=== PATIENT | female | born 1945 | race Two or more races ===

== ENCOUNTER 2018-06-28 21:03 | Emergency (ER) | payer OTHER, MEDICAID ==
[~2018-06-28] VITALS: Ht 165.1 cm; Wt 65.8 kg
[2018-06-28 22:05] LABS: Basophils # (auto) 0.1 uL; Eosinophils # (auto) 0.1 uL; Hemoglobin 12.8 g/dL (12.2-16.2); Mean Corpuscular Hemoglobin 25.8 pg (28.0-32.0); White Blood Cell 16.5 10^3/uL (4.4-10.8)
[2018-06-28 22:07] LABS: Basophils % (auto) 0.3 % (0.0-2.0); Eosinophils % (auto) 0.6 % (0.0-7.0); Lymphocytes # (auto) 2.4 uL; Lymphocytes % (auto) 14.6 % (10.0-50.0); Mean Corpuscular Hgb Conc. 31.9 g/dL (32.0-36.0); Mean Corpuscular Volume 80.7 fL (80.0-100.0); Monocytes # (auto) 0.9 uL; Monocytes % (auto) 5.6 % (0.0-12.0); Neutrophils % (auto) 78.9 % (37.0-80.0); Platelet Count (auto) 320 10^3/uL (140-450); Red Blood Cells 4.95 10^6/uL (4.0-5.20); Red Cell Distribution Width 15.8 % (11.8-14.3)
[2018-06-28 22:21] LABS: Albumin 3.2 g/dL (3.4-5.0); BUN/Creatinine Ratio 26.4; Calcium 8.1 mg/dL (8.5-10.1); Potassium 3.9 mmol/L (3.5-5.1)
[2018-06-28 22:24] LABS: Bilirubin, Total 0.2 mg/dL (0.2-1.0); Total Protein 7.1 g/dL (6.4-8.2)
[2018-06-28] MEDS ORDERED: KETOROLAC TROMETH 30 MG/ML 1ML VIAL IV ONE (23:30)
[2018-06-28] MEDS ORDERED: ONDANSETRON HCL 4 MG/2 ML VIAL IV ONE (23:30)
[2018-06-28] MEDS ORDERED: SODIUM CHLORIDE 0.9% 1,000 ML IV ONE (23:30)
[2018-06-29 01:41] VITALS: BP 201/84
[2018-06-29 01:48] LABS: Urine Amorphous Crystal FEW /hpf (None Seen); Urine Bacteria FEW /hpf (None Seen); Urine Blood TRACE /uL (Negative); Urine Specific Gravity 1.013 (1.001-1.035); Urine WBC 3 /hpf (0 - 5)
== END 2018-06-29 02:07 | disposition home or self-care (01) ==
LOC: EDBD 21:03 → ER 21:11
DX: N20.0 Calculus of kidney (principal); Z86.73 Personal history of transient ischemic attack (TIA), and cerebral infarction without residual deficits; Z90.710 Acquired absence of both cervix and uterus
CPT/HCPCS: 36415; 74176; 80053; 81001; 82150; 83690; 85025; 96374; 96375; 99284; J1885; J2405; J7030

== ENCOUNTER 2018-11-11 13:37 | Emergency (ER) | payer OTHER, MEDICAID ==
[~2018-11-11] VITALS: Ht 154.9 cm; Wt 81.6 kg
[2018-11-11 17:35] VITALS: BP 185/93
== END 2018-11-11 17:34 | disposition home or self-care (01) ==
LOC: EDUNIT# 13:37 → EDBD 13:37 → ER 13:43
DX: S80.02XA Contusion of left knee, initial encounter (principal); S70.01XA Contusion of right hip, initial encounter; Z86.73 Personal history of transient ischemic attack (TIA), and cerebral infarction without residual deficits; Z90.710 Acquired absence of both cervix and uterus; Z96.652 Presence of left artificial knee joint; Y93.89 Activity, other specified; W18.39XA Other fall on same level, initial encounter; Y99.8 Other external cause status; Y92.89 Other specified places as the place of occurrence of the external cause
CPT/HCPCS: 29505; 73502; 73560

== ENCOUNTER 2020-06-15 23:59 | Inpatient (IN) | payer OTHER, MEDICAID ==
[~2020-06-15] VITALS: Ht 152.4 cm; Wt 85.2 kg
[2020-06-16] MEDS ORDERED: SODIUM CHLORIDE 0.9% 500 ML IV ONE (01:00)
[2020-06-16] MEDS ORDERED: ONDANSETRON HCL 4 MG/2 ML VIAL IV ONE (01:00)
[2020-06-16] MEDS ORDERED: MORPHINE SULFATE 4 MG/ML SYR/VIAL IV ONE ×2 (01:00→05:30)
[2020-06-16 01:31] LABS: Basophils # (auto) 0.1 10 ^3/uL (0-0.2); Hemoglobin 13.3 g/dL (12.2-16.2); Monocytes # (auto) 0.7 10 ^3/uL (0-1.3)
[2020-06-16 01:32] LABS: Basophils % (auto) 0.2 % (0.0-2.0); Eosinophils # (auto) 0.1 10 ^3/uL (0-0.8); Eosinophils % (auto) 0.2 % (0.0-7.0); Hematocrit 41.6 % (36.0-46.0); Lymphocytes # (auto) 1.4 10 ^3/uL (0.4-5.4); Mean Corpuscular Hemoglobin 25.1 pg (28.0-32.0); Mean Corpuscular Volume 78.4 fL (80.0-100.0); Monocytes % (auto) 3.1 % (0.0-12.0); Neutrophils # (auto) 21.9 10 ^3/uL (1.6-8.6); Neutrophils % (auto) 90.5 % (37.0-80.0); Platelet Count (auto) 371 10^3/uL (140-450); Red Blood Cells 5.31 10^6/uL (4.0-5.20); Red Cell Distribution Width 16.6 % (11.8-14.3); White Blood Cell 24.2 10^3/uL (4.4-10.8)
[2020-06-16 01:47] LABS: Alanine Aminotransferase 25 U/L (13-56); Albumin 3.2 g/dL (3.4-5.0); Amylase 49 U/L (25-115); Anion Gap 7 (5-15); Aspartate Aminotransferase 19 U/L (15-37); Blood Urea Nitrogen 15 mg/dL (7-18); Calcium 8.4 mg/dL (8.5-10.1); Carbon Dioxide 30 mmol/L (21-32); Chloride 100 mmol/L (98-107); GFR African American 92 mL/min; GFR Non-African American 76 mL/min; Glucose 125 mg/dL (74-106); Lipase 114 U/L (73-393); Potassium 3.3 mmol/L (3.5-5.1); Sodium 137 mmol/L (136-145)
[2020-06-16 01:52] LABS: Alkaline Phosphatase 184 U/L (45-117); Bilirubin, Total 0.3 mg/dL (0.2-1.0); Total Protein 7.8 g/dL (6.4-8.2)
[2020-06-16 04:03] LABS: Urine Bacteria NONE SEEN /hpf (None Seen); Urine Blood Negative /uL (Negative); Urine Specific Gravity 1.015 (1.001-1.035); Urine WBC 3 /hpf (0 - 5)
[2020-06-16] MEDS ORDERED: SODIUM CHLORIDE 0.9% 1,000 ML IV ONE (05:30)
[2020-06-16] MEDS ORDERED: PIPERACILLIN-TAZOB 3.375GM 100 ML IV ONE (05:30)
[2020-06-16] MEDS ORDERED: VANCOMYCIN 1GM/250ML 250 ML IV ONE (05:30)
[2020-06-16] MEDS ORDERED: DOCUSATE SOD 100 MG CAP PO PRN (06:45)
[2020-06-16] MEDS ORDERED: MORPHINE SULFATE 4 MG/ML SYR/VIAL IV PRN (06:45)
[2020-06-16] MEDS ORDERED: POTASSIUM CHL 20MEQ/100ML 100 ML IV ONE (06:45)
[2020-06-16] MEDS ORDERED: NITROGLYCERIN 0.4 MG SL TAB SL PRN (06:45)
[2020-06-16] MEDS ORDERED: VANCOMYCIN PER PHARMACY 0 MG IV SCH (06:45)
[2020-06-16] MEDS ORDERED: MORPHINE SULF INJ 2 MG/ML SYRINGE 1ML IV PRN (06:45)
[2020-06-16 06:49] LABS: Lactic Acid w/Reflex 2.5 mmol/L (0.4-2.0)
[2020-06-16 08:16] LABS: Basophils # (auto) 0 10 ^3/uL (0-0.2); Eosinophils # (auto) 0 10 ^3/uL (0-0.8); Eosinophils % (auto) 0.2 % (0.0-7.0); Lymphocytes # (auto) 1.5 10 ^3/uL (0.4-5.4); Monocytes # (auto) 0.8 10 ^3/uL (0-1.3)
[2020-06-16 08:18] LABS: Basophils % (auto) 0.1 % (0.0-2.0); Hematocrit 35.6 % (36.0-46.0); Hemoglobin 11.2 g/dL (12.2-16.2); Lymphocytes % (auto) 6.5 % (10.0-50.0); Mean Corpuscular Hemoglobin 24.9 pg (28.0-32.0); Mean Corpuscular Hgb Conc. 31.4 g/dL (32.0-36.0); Mean Corpuscular Volume 79.2 fL (80.0-100.0); Monocytes % (auto) 3.4 % (0.0-12.0); Neutrophils # (auto) 20.7 10 ^3/uL (1.6-8.6); Neutrophils % (auto) 89.8 % (37.0-80.0); Platelet Count (auto) 287 10^3/uL (140-450); Red Cell Distribution Width 16.8 % (11.8-14.3); White Blood Cell 23.1 10^3/uL (4.4-10.8)
[2020-06-16 08:23] LABS: Albumin 2.5 g/dL (3.4-5.0); Calcium 7.5 mg/dL (8.5-10.1); Potassium 3.2 mmol/L (3.5-5.1)
[2020-06-16] MEDS: SODIUM CHLORIDE 0.9% 1,000 ML IV SCH (08:25)
[2020-06-16 08:26] LABS: BUN/Creatinine Ratio 22.6; Bilirubin, Total 0.4 mg/dL (0.2-1.0)
[2020-06-16] MEDS: ENOXAPARIN SOD 40 MG/0.4 ML SYRINGE SC SCH (09:19)
[2020-06-16] MEDS: ONDANSETRON HCL 4 MG/2 ML VIAL IV PRN (09:19)
--- NOTE | 2020-06-16 14:45 | NUR ---
Telemetry admit from ER RUBIO,CHRISTOPHE admitted to Telemetry unit after SBAR received. Patient oriented to ZAKIA PAVON RN primary RN, TELE unit, room 289, bed B, and unit policies regarding patient care and visiting hours. Patient now on continuous telemetry monitoring, tele box #71 HR 90 and telemetry reading on arrival to unit is NSR . Patient placed on bedside oxygen, weighed by bedscale and encouraged to call if they need something. All questions and concerns addressed, patient verbalized understanding.
[2020-06-16 14:54] VITALS: BP 130/71
[2020-06-16] MEDS ORDERED: CYAN100L PO (14:54)
[2020-06-16] MEDS: PIPERACILLIN-TAZOB 3.375GM 100 ML IV SCH ×2 (15:04→21:40)
[2020-06-16] MEDS: MORPHINE SULF INJ 2 MG/ML SYRINGE 1ML IV PRN ×2 (15:24→21:40)
[2020-06-16 16:32] VITALS: BP 130/71
[2020-06-16] MEDS ORDERED: VANCOMYCIN 750mg/250ml 250 ML IV SCH (17:00)
--- NOTE | 2020-06-16 18:54 | NUR ---
CARE ENDORSED TO NOC MICHEL MCWILLIAMS.
--- NOTE | 2020-06-16 19:34 | NUR ---
Opening Shift Note Received report and assumed care of patient. Patient is awake and alert. No signs or symptoms of distress noted. Instructed patient on plan of care and to call for assistance as needed. Will continue to monitor.
--- NOTE | 2020-06-16 20:00 | NUR ---
IV removal/insertion 20g IV to the Left hand infiltrated. Discontinued IV with clean technique, catheter tip fully intact. Pressure dressing applied to site. NOTE: Inserted 20g IV to the Right forearm.
[2020-06-16] MEDS ORDERED: ALBUTEROL SULF 2.5 MG/0.5ML(0.5%) NEB SOLN NEB PRN (20:30)
[2020-06-16 20:41] VITALS: BP 130/71
[2020-06-16 21:00] VITALS: BP_SYST 118; BP_SYST 152; BP_DIAS 52; BP_DIAS 72
[2020-06-16] MEDS: DOCUSATE SOD 100 MG CAP PO SCH (21:40)
--- NOTE | 2020-06-16 21:40 | NUR ---
Pain Medication Administration Patient complaining of abdominal pain 02/15. Will administer pain medication per MD order. Will reassess pain level and will continue to monitor.
--- NOTE | 2020-06-16 22:10 | NUR ---
Pain Level Reassessment Patient's pain level reassessed to be 6/10. Offered patient nonpharmacological interventions. Repositioned patient for comfort. Will continue to monitor.
[2020-06-17] MEDS: ACETAMINOPHEN 325 MG TAB PO PRN ×2 (03:58→17:03)
--- NOTE | 2020-06-17 03:58 | NUR ---
Pain Medication Administration Patient complaining of headache pain level 5/10. Patient requesting Tylenol. Will administer pain medication per MD order. Will reassess pain level and will continue to monitor.
--- NOTE | 2020-06-17 04:58 | NUR ---
Pain Level Reassessment Patient's pain level reassessed to be 0/10. No signs or symptoms of distress noted. Will continue to monitor.
[2020-06-17 05:00] VITALS: BP 154/91
[2020-06-17 05:28] LABS: Basophils # (auto) 0.1 10 ^3/uL (0-0.2); Basophils % (auto) 0.4 % (0.0-2.0); Eosinophils # (auto) 0.1 10 ^3/uL (0-0.8); Eosinophils % (auto) 0.8 % (0.0-7.0); Hematocrit 34.2 % (36.0-46.0); Hemoglobin 10.8 g/dL (12.2-16.2); Lymphocytes # (auto) 1.3 10 ^3/uL (0.4-5.4); Lymphocytes % (auto) 8.6 % (10.0-50.0); Mean Corpuscular Hemoglobin 25.3 pg (28.0-32.0); Mean Corpuscular Hgb Conc. 31.6 g/dL (32.0-36.0); Mean Corpuscular Volume 80.1 fL (80.0-100.0); Monocytes # (auto) 0.6 10 ^3/uL (0-1.3); Monocytes % (auto) 3.7 % (0.0-12.0); Neutrophils # (auto) 13.2 10 ^3/uL (1.6-8.6); Neutrophils % (auto) 86.5 % (37.0-80.0); Platelet Count (auto) 275 10^3/uL (140-450); Red Blood Cells 4.27 10^6/uL (4.0-5.20); White Blood Cell 15.2 10^3/uL (4.4-10.8)
[2020-06-17 05:42] VITALS: BP 141/70
[2020-06-17] MEDS: SODIUM CHLORIDE 0.9% 1,000 ML IV SCH ×2 (05:42→16:05)
[2020-06-17] MEDS: PIPERACILLIN-TAZOB 3.375GM 100 ML IV SCH ×2 (05:42→13:13)
[2020-06-17 05:53] LABS: Albumin 2.2 g/dL (3.4-5.0); Potassium 3.3 mmol/L (3.5-5.1)
[2020-06-17 05:57] LABS: Bilirubin, Total 0.7 mg/dL (0.2-1.0); Total Protein 5.8 g/dL (6.4-8.2)
--- NOTE | 2020-06-17 07:30 | NUR ---
Opening Shift Note Assumed care of patient, resting with eyes closed. No S/S of distress/SOB or pain. Bed locked in lowest position, side rails up x2, call light is within reach. Will continue to monitor for changes Q1hr and PRN.
[2020-06-17 09:00] VITALS: BP 146/70
[2020-06-17] MEDS: DOCUSATE SOD 100 MG CAP PO SCH ×2 (09:38→22:34)
[2020-06-17] MEDS: ENOXAPARIN SOD 40 MG/0.4 ML SYRINGE SC SCH (09:38)
[2020-06-17] MEDS: MORPHINE SULF INJ 2 MG/ML SYRINGE 1ML IV PRN ×2 (09:38→18:44)
--- NOTE | 2020-06-17 11:40 | NUR ---
Respiratory note: PT WAS ASSESSED FOR PRN MED NEB. PT DENIES ANY RESP DISTRESS. RR 18, SPO2 93% ON 2L, HR 88. PT INSTRUCTED TO HAVE RT PAGED IF NEEDED
[2020-06-17 13:00] VITALS: BP 154/76
[2020-06-17] MEDS: HYDROcodone-ACET 5/325MG TAB PO PRN (13:13)
[2020-06-17] MEDS: ONDANSETRON HCL 4 MG/2 ML VIAL IV PRN ×2 (13:14→18:44)
[2020-06-17] MEDS ORDERED: CIPROFLOXACIN HCL 500 MG TAB PO ONE (16:00)
[2020-06-17] MEDS ORDERED: POTASSIUM CHL 20 Meq TABLET PO ONE (16:00)
[2020-06-17] MEDS ORDERED: metroNIDAZOLE 500MG/100ML 100 ML IV ONE (16:00)
[2020-06-17 17:00] VITALS: BP 154/77
--- NOTE | 2020-06-17 20:00 | NUR ---
Opening Shift Note Assumed care of patient, awake and alert x 4. No S/S of distress/SOB or pain. Tele box matches pt all leads in place. Bed lowered and locked side rails up x 2. Call light and bedside table are within reach. Instructed on POC and to call for assist PRN, will continue to monitor for changes Q1hr and PRN.
--- NOTE | 2020-06-17 21:00 | NUR ---
Respiratory note: PT ASSESSED FOR PRN MED NEB TX. HR 83, RR 18, SPO2 97% ON 2L NC. NO S/S OF ANY RESPIRATORY DISTRESS NOTED. ADVISED PT TO CALL IF TX IS NEEDED.
[2020-06-17 22:00] VITALS: BP 162/67
[2020-06-17] MEDS: metroNIDAZOLE 500MG/100ML 100 ML IV SCH (22:33)
[2020-06-17] MEDS: CIPROFLOXACIN HCL 500 MG TAB PO SCH (22:33)
[2020-06-18] MEDS: ONDANSETRON HCL 4 MG/2 ML VIAL IV PRN ×2 (00:16→23:13)
[2020-06-18 05:00] VITALS: BP 165/86
[2020-06-18] MEDS: metroNIDAZOLE 500MG/100ML 100 ML IV SCH ×3 (05:34→22:11)
--- NOTE | 2020-06-18 06:49 | NUR ---
Respiratory note: HR 80, RR 18, SPO2 94% ON 2 L NC, BS CLEAR/DIMINISHED.PRN MED NEB TX NOT INDICATED AT THIS TIME. PT ON BEDSIDE COMMODE.NO SIGNS OR SYMPTOMS OF RESPIRATORY DISTRESS NOTED. PT INFORMED TO HIT CALL BUTTON IF FEELING SOB OR WHEEZING.
--- NOTE | 2020-06-18 07:40 | NUR ---
Opening Shift Note Assumed care of patient, awake and alert. No S/S of distress/SOB. Pt reports headache pain /10. Instructed that will give pain medications as ordered. Instructed on POC and to call for assist PRN, will continue to monitor for changes Q1hr and PRN.
[2020-06-18] MEDS: HYDROcodone-ACET 5/325MG TAB PO PRN ×2 (08:30→15:22)
[2020-06-18 09:00] VITALS: BP 159/79
[2020-06-18] MEDS: CIPROFLOXACIN HCL 500 MG TAB PO SCH ×2 (09:56→22:11)
[2020-06-18] MEDS: SODIUM CHLORIDE 0.9% 1,000 ML IV SCH (09:56)
[2020-06-18] MEDS: DOCUSATE SOD 100 MG CAP PO SCH ×2 (09:56→22:12)
[2020-06-18] MEDS ORDERED: amLODIPine BESYLATE 5 MG TAB PO ONE (12:00)
--- NOTE | 2020-06-18 12:09 | NUR ---
Nutrition Assessment/Consult Notes Please refer to link for full assessment notes. Est Energy needs: 9765-2546 kcals (14-18 kcal/kgBW) Est Protein needs: 88-96 gms/day (1.0-1.1 gm/kgBW) Will continue to monitor and reassess prn. Addendum: 06/18/20 at [address] Amended: Links added.
[2020-06-18] MEDS: ENOXAPARIN SOD 40 MG/0.4 ML SYRINGE SC SCH (12:17)
[2020-06-18 13:00] VITALS: BP 160/75
[2020-06-18] MEDS: ACETAMINOPHEN 325 MG TAB PO PRN (14:00)
--- NOTE | 2020-06-18 16:10 | NUR ---
PAGED DR RICO PATIENT REPORTING SEVERE HEADACHE PAIN OF 9/10, NORCO AND TYLENOL NOT RELIVING PAIN.
[2020-06-18] MEDS: MORPHINE SULF INJ 2 MG/ML SYRINGE 1ML IV PRN (16:40)
[2020-06-18 16:52] VITALS: BP 162/84
[2020-06-18] MEDS: hydrALAZINE HCL 25 MG TAB PO SCH ×2 (18:09→23:50)
--- NOTE | 2020-06-18 18:38 | NUR ---
PATIENT ROUNDS PATIENT SITTING UP IN BED WATCHING TELEVISION. NO DISTRESS NOTED. PATIENT LISA PAIN AT THIS TIME. WILL ENDORSE CARE TO SCREW DRIVER OPERATOR RN.
--- NOTE | 2020-06-18 19:30 | NUR ---
Opening Shift Note Assumed care of patient, awake and alert x 4. No S/S of distress/SOB or pain. Tele box matches pt all leads in place. Bed lowered and locked side rails up x 2. Call light and bedside table in reach. Insructed on POC and to callfor assist PRN, will continue to monitor for changes Q1hr and PRN.
[2020-06-18 22:00] VITALS: BP 159/87
[2020-06-18 22:58] LABS: INR 1.09 (0.9-1.15); Partial Thromboplastin Time 26.3 sec (23.0-31.2)
[2020-06-18 23:18] LABS: Cholesterol 157 mg/dL (< 200)
[2020-06-18 23:20] LABS: HDL Cholesterol 45 mg/dL (40-59); LDL Cholesterol 108 mg/dL (< 100); Triglycerides 86 mg/dL (< 150)
[2020-06-19 00:23] LABS: CSF White Blood Cells 1.67 CUMM (0-5)
[2020-06-19 01:59] LABS: Protein, CSF 27.8 mg/dL (15-45)
[2020-06-19 05:00] VITALS: BP 163/95
[2020-06-19] MEDS: metroNIDAZOLE 500MG/100ML 100 ML IV SCH ×3 (05:48→22:09)
[2020-06-19] MEDS: hydrALAZINE HCL 25 MG TAB PO SCH ×3 (05:49→18:00)
[2020-06-19] MEDS: ONDANSETRON HCL 4 MG/2 ML VIAL IV PRN ×2 (06:48→22:40)
--- NOTE | 2020-06-19 07:00 | NUR ---
Patient Received Patient report received by night nurse.
[2020-06-19] MEDS ORDERED: IOHEXOL 350 MG/ML 100ML IJ ONE (07:58)
[2020-06-19 09:00] VITALS: BP 169/95
[2020-06-19] MEDS: CIPROFLOXACIN HCL 500 MG TAB PO SCH ×2 (10:17→22:09)
[2020-06-19] MEDS: DOCUSATE SOD 100 MG CAP PO SCH ×2 (10:17→22:09)
[2020-06-19] MEDS: ENOXAPARIN SOD 40 MG/0.4 ML SYRINGE SC SCH (10:18)
[2020-06-19] MEDS: amLODIPine BESYLATE 5 MG TAB PO SCH (10:38)
--- NOTE | 2020-06-19 10:46 | NUR ---
PAGED DR Blanca FIGUEROA REGARDING ADVANCING TO FULL LIQUID DIET PER MD RICO.
[2020-06-19 13:00] VITALS: BP 147/80
--- NOTE | 2020-06-19 13:22 | NUR ---
Doctor with patient in room. Addendum: 06/19/20 at 1358 by DAVID CANCINO RN RN Disregard note, wrong patient.
[2020-06-19 13:59] LABS: Basophils # (auto) 0 10 ^3/uL (0-0.2); Basophils % (auto) 0.5 % (0.0-2.0); Eosinophils # (auto) 0.1 10 ^3/uL (0-0.8); Mean Corpuscular Volume 78.5 fL (80.0-100.0); Monocytes # (auto) 0.4 10 ^3/uL (0-1.3); Nucleated Red Blood Cells % 0.1 %
[2020-06-19 14:01] LABS: Eosinophils % (auto) 1.2 % (0.0-7.0); Hematocrit 36.7 % (36.0-46.0); Hemoglobin 11.9 g/dL (12.2-16.2); Lymphocytes # (auto) 0.8 10 ^3/uL (0.4-5.4); Lymphocytes % (auto) 9.6 % (10.0-50.0); Mean Corpuscular Hemoglobin 25.4 pg (28.0-32.0); Mean Corpuscular Hgb Conc. 32.4 g/dL (32.0-36.0); Monocytes % (auto) 4.5 % (0.0-12.0); Neutrophils # (auto) 7.4 10 ^3/uL (1.6-8.6); Neutrophils % (auto) 84.2 % (37.0-80.0); Platelet Count (auto) 366 10^3/uL (140-450); Red Blood Cells 4.67 10^6/uL (4.0-5.20); Red Cell Distribution Width 16.2 % (11.8-14.3); White Blood Cell 8.8 10^3/uL (4.4-10.8)
[2020-06-19 14:18] LABS: Albumin 2.7 g/dL (3.4-5.0); Calcium 8.4 mg/dL (8.5-10.1)
[2020-06-19 14:21] LABS: BUN/Creatinine Ratio 7.8; Bilirubin, Total 0.4 mg/dL (0.2-1.0); Total Protein 6.9 g/dL (6.4-8.2)
[2020-06-19 14:48] LABS: Potassium 2.9 mmol/L (3.5-5.1)
--- NOTE | 2020-06-19 14:48 | NUR ---
CRITICAL POTASSIUM LEVEL OF 2.9 MD JACKY SALMON.
[2020-06-19] MEDS ORDERED: POTASSIUM CHL 20MEQ/100ML 100 ML IV SCH (15:15)
[2020-06-19 17:00] VITALS: BP 145/68
--- NOTE | 2020-06-19 18:00 | NUR ---
UPDATED FAMILY FOR 3RD TIME TODAY SPOKE WITH DAUGHTER LUIS FERNANDO, AFTER VERIFYING PASSWORD. DAUGHTER IS REQUESTING TO SPEAK TO MD, NOTE PLACED ON CHART.
--- NOTE | 2020-06-19 18:40 | NUR ---
PATIENT ROUNDS PATIENT SITTING UP IN BED WATCHING TELEVISION. NO DISTRESS NOTED. PATIENT LISA PAIN AT THIS TIME. WILL ENDORSE CARE TO CARBON DIOXIDE OPERATOR RN.
[2020-06-19] MEDS: POTASSIUM CHL 20MEQ/100ML 100 ML IV SCH ×2 (18:45→22:09)
--- NOTE | 2020-06-19 20:00 | NUR ---
RECEIVED PATIENT FROM DAY SHIFT RN. PATIENT RESTING IN BED. NO S/S OF DISTRESS NOTED. DENIED PAIN AT THIS TIME. ME ALCARAZ AT BEDSIDE. POC INSTRUCTED AND ENCOURAGED PATIENT TO CALL FOR SURGICAL TECHNOLOGIST IF NEEDED. BED IN LOWEST LOCKED POSITION WITH SIDE RAILS UP X 2. CALL [facility] WITHIN REACH. ALARM ON. CONTINUE TO MONITOR FOR CHANGES Q1H AND PRN.
[2020-06-19 22:30] VITALS: BP 162/89
[2020-06-19] MEDS: MORPHINE SULF INJ 2 MG/ML SYRINGE 1ML IV PRN (22:39)
--- NOTE | 2020-06-19 22:40 | NUR ---
PATIENT C/O ABD PAIN @ 8/10, AND NAUSEA AFTER CIPRO, MEDICATED ORDERED. CONTINUE TO MONITOR.
--- NOTE | 2020-06-19 23:50 | NUR ---
PATIENT STILL NAUSEA FOR NOW. WILL COME BACK LATER FOR ORAL MEDICATION.
[2020-06-20] MEDS: hydrALAZINE HCL 25 MG TAB PO SCH ×3 (00:31→11:44)
--- NOTE | 2020-06-20 01:20 | NUR ---
REASSESSED BP 152/85. HR 82. CONTINUE TO MONITOR.
--- NOTE | 2020-06-20 03:50 | NUR ---
PATIENT SLEEPING. NOW. NO S/S OF DISTRESS NOTED. NO PAIN AND NAUSEA NOTED. CONTINUE TO MONITOR.
[2020-06-20 05:18] VITALS: BP 155/87
[2020-06-20] MEDS: metroNIDAZOLE 500MG/100ML 100 ML IV SCH ×2 (06:12→14:00)
[2020-06-20 09:00] VITALS: BP 173/89
[2020-06-20] MEDS: DOCUSATE SOD 100 MG CAP PO SCH (09:02)
[2020-06-20] MEDS: CIPROFLOXACIN HCL 500 MG TAB PO SCH (09:02)
[2020-06-20] MEDS: ENOXAPARIN SOD 40 MG/0.4 ML SYRINGE SC SCH (09:03)
[2020-06-20] MEDS: amLODIPine BESYLATE 5 MG TAB PO SCH (09:03)
--- NOTE | 2020-06-20 09:04 | NUR ---
REGARDING CIPROFLOXACIN: PATIENT REFUSING CIPROFLOXACIN AT THIS TIME. PER PATIENT LAST TIME SHE TOOK THIS MEDICATION SHE HAD EPISODE OF NAUSEA AND VOMITING. EDUCATED ON NEED FOR MEDICATION.CONTINUING TO REFUSE.
--- NOTE | 2020-06-20 10:11 | NUR ---
Rosa Isela ROUNDING: Rosa Isela RICO AT BEDSIDE. INFORMED OF PATIENT STATUS. INFORMED OF PATIENTS REFUSAL OF CIPRO DUE TO NAUSEA AND VOMITING. ALSO INFORMED OF PATIENTS BLOOD PRESSURE. SEE EMAR FOR NEW ORDERS.
[2020-06-20] MEDS ORDERED: cefTRIAXone 1GM/50ML D5W 50 ML IV ONE (10:30)
[2020-06-20] MEDS ORDERED: LOSARTAN POTASSIUM 50 MG TAB PO ONE (11:15)
--- NOTE | 2020-06-20 11:15 | NUR ---
SPOKE WITH Rosa Isela RICO OVER THE PHONE. PER Rosa Isela RICO SHE SPOKE TO WITH Rosa Isela FIGUEROA AND RECEIVED CLEARANCE. INFORMED Rosa Isela RICO OF PATIENTS PAIN WHEN EATING. OK TO D/C PER Rosa Isela.
--- NOTE | 2020-06-20 12:29 | NUR ---
Nutrition Followup Note Wt 85.2kg Pt was sleeping at time of rounds with no family at bedside. Pt is with a Full liquid diet with a good appetite aeb pt with 75-100% po intake x 2 days per Rn note. Pt is reporting some nausea d/t to medication per RN note Est Energy needs: 2064-0272 kcals (14-18 kcal/kgBW) Est Protein needs: 88-96 gms/day (1.0-1.1 gm/kgBW) Will continue to monitor and reassess prn. Labs: K 2.9L, BUn 5L, GLUC 140H, Alb 2.7L, Ca 8.4L BM: Pt with 3 BMs 06/20 per Rn note Skin: BS 18 mod risk, full details in foam caster car enote PES Resolved: Pt diet advanced to full liquid with good intake1) Increased nutrient needs r/t pt with no PO intake, with a restricted diet aeb pt with a Clear liquid diet, 0% PO intake 2) Obesity r/t energy intake in excess of energy needs 2) aeb BMI of 37.8 kg/m2 Comments Will continue to monitor PO status, skin status, pertinent labs and weight trends. Will f/u in 3-5 days 1) Continue to closely monitor pt PO intake to meet at least 75% of meals 2) Continue advance pt to a solid oral diet as tolerated and per MD approval. 3) If albumin continues trending down, consider Prostat 1 pkt BID 4) Continue current plan of care Expected Outcomes/Goals: Pt appetite to meet at least 75% PO intake Pt diet to acvance to a solid oral diet
[2020-06-20] MEDS ORDERED: AMLO10TA13 PO (12:30)
[2020-06-20] MEDS ORDERED: LOSA-69 PO (12:30)
[2020-06-20] MEDS ORDERED: METR500T PO (12:31)
[2020-06-20] MEDS ORDERED: DOCU100C8 PO (12:32)
[2020-06-20] MEDS ORDERED: PANT40TA2 PO (12:33)
[2020-06-20] MEDS ORDERED: AMOX500T86 PO (12:33)
[2020-06-20] MEDS ORDERED: ACET-1079 PO (12:37)
[2020-06-20 13:00] VITALS: BP 158/80
--- NOTE | 2020-06-20 16:00 | NUR ---
Discharge instructions given as ordered. Encourage to follow up with PMD as instructed. Instructed to follow up with pcp on appointment date provide (06/25/20) instructed on Gi and surgical follow-ups as well. Provided with teaching for new medications. All questions and concerns addressed. Patient verbalized understanding. Medication reconciliation form completed and copy given to patient. IV removed with catheter intact, pressure dressing applied. Telemetry unit returned to ICU. Patient taken to vehicle via wheelchair with all personal belongings, accompanied by staff and family member. No distress noted at time of departure.
[2020-06-21] MEDS ORDERED: cefTRIAXone 1GM/50ML D5W 50 ML IV SCH (09:00)
[2020-06-21] MEDS ORDERED: LOSARTAN POTASSIUM 50 MG TAB PO SCH (10:00)
== END 2020-06-20 15:55 | disposition home or self-care (01) | DRG 872 ==
LOC: ER 23:59 → EDUNIT# 23:59 → EDBD 23:59 → TELE 06-16 → TELE-WESTW 06-16 14:38
PROVIDERS: ADMIT Nurse Practitioner Family; ATTEND Internal Medicine Nephrology
PROC: 009U3ZZ Drainage of Spinal Canal, Percutaneous Approach (ICD-10-PCS; principal; 2020-06-18)
DX: A41.9 Sepsis, unspecified organism (principal); K57.32 Diverticulitis of large intestine without perforation or abscess without bleeding; R65.20 Severe sepsis without septic shock; E87.6 Hypokalemia; D50.9 Iron deficiency anemia, unspecified; K80.20 Calculus of gallbladder without cholecystitis without obstruction; F17.200 Nicotine dependence, unspecified, uncomplicated; Z79.82 Long term (current) use of aspirin; Z80.9 Family history of malignant neoplasm, unspecified; Z86.73 Personal history of transient ischemic attack (TIA), and cerebral infarction without residual deficits; Z91.19 Patient's noncompliance with other medical treatment and regimen; Z90.710 Acquired absence of both cervix and uterus
CPT/HCPCS: 36415; 70450; 70496; 71045; 74176; 76705; 80053; 80061; 81001; 82150; 82945; 82962; 83605; 83690; 83880; 84132; 84157; 84484; 85025; 85610; 85652; 85730; 87040; 87086; 89051; 93005; 94640; 96365; 96375; 96376; G0378; J0696; J2405; J2543; J3480; J3490

== ENCOUNTER 2024-07-27 09:42 | Emergency (ER) | payer MEDICARE, MEDICAID ==
[~2024-07-27] VITALS: Ht 149.9 cm; Wt 68.0 kg
[~2024-07-27 09:42] MED LIST: ACET-1079 PO; AMLO1TAB23 PO; AMOX500T86 PO; DOCU-265 PO; LOSA-534 PO; METR500T PO; PANT40TA2 PO
--- NOTE | 2024-07-27 09:59 | ED.PDOC ---
HPI Comments 79 year old female LIBRADO presents to the ED with chief complaint of chest pain. Patient relays that she had woken up at 4am with mid/left sided chest pain and associated left sided hip pain since yesterday after cooking. Patient reports that she is now unable to move her left leg. Patient states that she took her HTN medication and a Oracle this morning prior to coming into the ED. Patient denies any SOB, cough, dizziness, headache, N/V/D, or numbness. Time Seen by MD: 09:54 Primary Care Provider: LOSK Reviewed Notes: Nurses Notes, Legal Support Specialist Notes, Medications, Allergies Allergies: Coded Allergies: NO KNOWN ALLERGIES (Unverified , 06/28/18) Home Meds Active Scripts Acetaminophen (Tylenol) 325 Mg Tb, 325 MG PO Q6HPRN PRN for 10 Days, #40 TAB prn pain Prov:ARIELLE RICO MD 06/20/20 Pantoprazole Sodium Sesquihydr (Protonix) 40 Mg Tab, 40 MG PO DAILY for 30 Days, #30 TAB Prov:ARIELLE RICO MD 06/20/20 Amoxicillin & Pot Clavulanate (Augmentin) 500 Mg Tab, 1 TAB PO TID for 10 Days, #30 TAB Prov:ARIELLE RICO MD 06/20/20 Docusate Sodium (Docusate Sodium) 100 Mg Cap, 100 MG PO BID for 7 Days, #14 CAP Prov:ARIELLE RICO MD 06/20/20 Metronidazole (Flagyl) 500 Mg Tab, 500 MG PO TID for 7 Days, #21 TAB Prov:ARIELLE RICO MD 06/20/20 Losartan Potassium (Losartan Potassium) 50 Mg Tab, 50 MG PO DAILY for 30 Days, #30 TAB 0 Refills Prov:ARIELLE RICO MD 06/20/20 Amlodipine Besylate (Amlodipine Besylate) 10 Mg Tab, 1 TAB PO DAILY for 30 Days, #30 TAB 1 Refill Prov:ARIELLE RICO MD 06/20/20 Information Source: Patient, Emergency Med Personnel Mode of Arrival: EMS Severity: Moderate Timing: Hours Duration: Since onset Prehospital treatment: None Location: Chest (L) Radiation: No Radiation Quality: Pressure Onset: At Rest Cardiac Risk Factors: HTN PE Risk Factors: None Past Medical History PAST MEDICAL HISTORY: Arthritis, CVA, HTN Past Medical History (Other): Diverticulitis Surgical History: Hysterectomy Surgical History (Other): Left hip replacement HERBICIDE SERVICE SALES REPRESENTATIVE History: No Pertinent HERBICIDE SERVICE SALES REPRESENTATIVE History Family History Family History: Unobtainable Social History Smoker: Non-Smoker Alcohol: Occasionally Drugs: Denies Drug Use Lives In: Home Constitutional: denies: chills, diaphoresis, fatigue, fever, malaise, sweats, weakness, others EENTM: denies: blurred vision, double vision, ear bleeding, ear discharge, ear drainage, ear pain, ear ringing, eye pain, eye redness, hearing loss, mouth pain, mouth swelling, nasal discharge, nose bleeding, nose congestion, nose pain, photophobia, tearing, throat pain, throat swelling, voice changes, others Respiratory: denies: cough, hemoptysis, orthopnea, SOB at rest, shortness of breath, SOB with excertion, stridor, wheezing, others Cardiovascular: reports: chest pain; denies: dizzy spells, diaphoresis, Dyspnea on exertion, edema, irregular heart beat, left arm pain, lightheadedness, palpitations, PND, syncope, others Gastrointestinal: denies: abdomen distended, abdominal pain, blood streaked bowels, constipated, diarrhea, dysphagia, difficulty swallowing, hematemesis, melena, nausea, poor appetite, poor fluid intake, rectal bleeding, rectal pain, vomiting, others Genitourinary: denies: abnormal vagina bleeding, burning, dyspareunia, dysuria, flank pain, frequency, hematuria, incontinence, pain, , vagina discharge, urgency, others Neurological: denies: dizziness, fainting, headache, left sided numbness, left sided weakness, numbness, paresthesia, pre-existing deficit, right sided numbness, right sided weakness, seizure, speech problems, tingling, tremors, weakness, others Musculoskeletal: reports: others (Left hip pain); denies: back pain, gout, joint pain, joint swelling, muscle pain, muscle stiffness, neck pain Integumetry: denies: bruises, change in color, change in hair/nails, dryness, laceration, lesions, lumps, rash, wounds, others Allergic/Immunocompromised: denies: Difficulty Healing, Frequent Infections, Hives, Itching, others Hematologic/Lymphatic: denies: anemia, blood clots, easy bleeding, easy bruising, swollen glands, others Endocrine: denies: excessive hunger, excessive sweating, excessive thirst, excessive urination, flushing, intolerance to cold, intolerance to heat, unexplained weight gain, unexplained weight loss, others Psychiatric: denies: anxiety, bipolar disorder, depression, hopeless, panic disorder, schizophrenia, sleepless, suicidal, others All Other Systems: Reviewed and Negative Physical Exam General Appearance: Moderate Distress, Normal HEENT: Normal ENT Inspection, PERRL/EOMI Neck: Full Range of Motion, Non-Tender, Normal, Normal Inspection Respiratory: Chest Non-Tender, Lungs Clear, No Accessory Muscle Use, No Respiratory Distress, Normal Breath Sounds Cardiovascular: No Edema, No JVD, No Murmur, No Gallop, Normal Peripheral Pulses, Regular Rate/Rhythm Breast Exam: Deferred Gastrointestinal: No Organomegaly, Non Tender, No Pulsatile Mass, Normal Bowel Sounds, Soft Genitalia: Deferred Pelvic: Deferred Rectal: Deferred Extremities: No calf tenderness, Normal capillary refill, Normal inspection, Normal range of motion, Non-tender, No pedal edema Musculoskeletal : Apperance: Normal Neurologic: Alert, revenue audit clerk II-XII nml as Tested, No Motor Deficits, Normal Affect, Normal Mood, No Sensory Deficits Cerebellar Function: NOT DONE Reflexes: NOT DONE Skin: Dry, Normal Color, Warm Peripheral Pulses: 3+ Radial (R), 3+ Radial (L) Lymphatic: No Adenopathy EKG EKG : Pulse Rate (adult): 85 [place]: Normal Cardiac Rhythm: NSR Block: None Hypertrophy: None ST: Normal Was a procedure done? Was a procedure done?: No CP Differential Dx Differential Diagnosis: A-fib, A-Flutter, Angina, Anxiety / Panic Attack, Atrial Dysrhythmia, Electrolyte Disorder X-Ray, Labs, Meds, VS Vital Signs Date Time Temp Pulse Resp B/P (MAP) Pulse Ox O2 Delivery O2 Flow Rate FiO2 07/27/24 12:40 98.7 78 16 141/62 (88) 97 98.7 07/27/24 12:40 78 17 97 07/27/24 09:59 85 07/27/24 09:45 85 07/27/24 09:42 98.4 92 16 120/82 (95) 97 07/27/24 09:42 98.4 92 16 120/82 (95) 97 98.4 Lab Test 07/27/24 10:02 Range/Units White Blood Count 17.4 H 4.4-10.8 10^3/uL Red Blood Count 4.81 4.0-5.20 10^6/uL Hemoglobin 11.3 L 12.2-16.2 g/dL Hematocrit 35.9 L 36.0-46.0 % Mean Corpuscular Volume 74.6 L 80.0-100.0 fL Mean Corpuscular Hemoglobin 23.4 L 28.0-32.0 pg Mean Corpuscular Hemoglobin Concent 31.4 L 32.0-36.0 g/dL Red Cell Distribution Width 19.2 H 11.8-14.3 % Platelet Count 408 140-450 10^3/uL Mean Platelet Volume 8.3 6.9-10.8 fL Neutrophils (%) (Auto) 78.9 37.0-80.0 % Lymphocytes (%) (Auto) 13.0 10.0-50.0 % Monocytes (%) (Auto) 5.9 0.0-12.0 % Eosinophils (%) (Auto) 1.5 0.0-7.0 % Basophils (%) (Auto) 0.7 0.0-2.0 % Neutrophils # (Auto) 13.7 H 1.6-8.6 10 ^3/uL Lymphocytes # (Auto) 2.3 0.4-5.4 10 ^3/uL Monocytes # (Auto) 1.0 0-1.3 10 ^3/uL Eosinophils # (Auto) 0.3 0-0.8 10 ^3/uL Basophils # (Auto) 0.1 0-0.2 10 ^3/uL Nucleated Red Blood Cells 0.0 % Sodium Level 138 136-145 mmol/L Potassium Level 3.6 3.5-5.1 mmol/L Chloride Level 106 98-107 mmol/L Carbon Dioxide Level 25 20-31 mmol/L Anion Gap 7 5-15 Blood Urea Nitrogen 17 9-23 mg/dL Creatinine 0.66 0.550-1.02 mg/dL Glomerular Filtration Rate Calc 90 >90 mL/min BUN/Creatinine Ratio 25.8 H 10.0-20.0 Serum Glucose 82 74-106 mg/dL Calcium Level 9.4 8.7-10.4 mg/dL Troponin I High Sensitivity < 3 L </=34 ng/L Current Medications Medications (Trade) Dose Ordered Sig/Addy Route Start Time Stop Time Status Last Admin Aspirin 325 mg ONCE ONCE PO 07/27/24 10:00 07/27/24 10:01 DC 07/27/24 10:10 Ceftriaxone Sodium 50 ml @ 100 mls/hr ONCE ONCE IV 07/27/24 12:00 07/27/24 12:29 DC 07/27/24 13:28 Azithromycin 250 ml @ 125 mls/hr ONCE ONCE IV 07/27/24 12:00 07/27/24 13:59 DC 07/27/24 13:28 Patient alert. Complaining of chest pain. Vitals stable. Answering all questions. Continues to have chest pain. Was given aspirin. WBC elevated. Possible pneumonia. Chest x-ray. Cardiac marker within normal limits. Was given Rocephin. Was given azithromycin. Reviewed her previous visit. Explained to the patient. Continue cardiac monitoring. Time of 1ST Reevaluation: 10:54 Reevaluation 1ST: Unchanged Patient Education/Counseling: Diagnosis, Treatment Family Education/Counseling: No Family Present Additional Information I reviewed the following notes from patient's past medical encounters: Jun 16, 2020 for abdominal pain The following tests were ordered, and results were reviewed by me: Chest XR, EKG, UA, CBC, BMP, and Troponin Additional Information was gathered from interviewing the following independent historians: EMS I reviewed and agreed with the following test results read by other providers: Chest XR I discussed treatment and results with medical personnel. Departure 1 Departure Time of Disposition: 11:50 Impression: Primary Impression: Chest pain of unknown etiology Additional Impression: Pneumonia Qualified Codes: J18.9 - Pneumonia, unspecified organism Disposition: ADMITTED INPATIENT Admit to: Med Surg Condition: Guarded Critical Care Note Critical Care Time?: Yes (45 min-critical care time only) Stability Stability form required: No Heart Score Heart Score: Heart Score Response (Comments) Value History Moderate Suspicious 1 EKG Normal 0 Age >65 2 Risk Factors 1 or 2 risk factors 1 Troponin Normal limit 0 Total 4 I personally scribed for SHELDON BERNARDO MD ([email or web address]) on 07/27/24 at 09:59. Electronically submitted by Larry Blackwood ([email or web address]). I personally scribed for SHELDON BERNARDO MD ([email or web address]) on 07/27/24 at 15:34. Electronically submitted by Larry Blackwood ([email or web address]). SHELDON BERNARDO MD Jul 27, 2024 09:59
[2024-07-27] MEDS: ASPirin 325 MG TAB PO ONE (10:10)
[2024-07-27 10:23] LABS: Basophils # (auto) 0.1 10 ^3/uL (0-0.2); Eosinophils # (auto) 0.3 10 ^3/uL (0-0.8); Hemoglobin 11.3 g/dL (12.2-16.2); Red Cell Distribution Width 19.2 % (11.8-14.3)
[2024-07-27 10:25] LABS: Basophils % (auto) 0.7 % (0.0-2.0); Eosinophils % (auto) 1.5 % (0.0-7.0); Hematocrit 35.9 % (36.0-46.0); Lymphocytes # (auto) 2.3 10 ^3/uL (0.4-5.4); Mean Corpuscular Hemoglobin 23.4 pg (28.0-32.0); Mean Corpuscular Hgb Conc. 31.4 g/dL (32.0-36.0); Mean Corpuscular Volume 74.6 fL (80.0-100.0); Monocytes % (auto) 5.9 % (0.0-12.0); Neutrophils # (auto) 13.7 10 ^3/uL (1.6-8.6); Neutrophils % (auto) 78.9 % (37.0-80.0); Platelet Count (auto) 408 10^3/uL (140-450); Red Blood Cells 4.81 10^6/uL (4.0-5.20); White Blood Cell 17.4 10^3/uL (4.4-10.8)
[2024-07-27 10:35] LABS: Chloride 106 mmol/L (98-107); Potassium 3.6 mmol/L (3.5-5.1); Sodium 138 mmol/L (136-145)
[2024-07-27 10:36] LABS: Anion Gap 7 (5-15); Calcium 9.4 mg/dL (8.7-10.4); Carbon Dioxide 25 mmol/L (20-31)
[2024-07-27 10:41] LABS: BUN/Creatinine Ratio 25.8 (10.0-20.0); Blood Urea Nitrogen 17 mg/dL (9-23); Glucose 82 mg/dL (74-106)
--- NOTE | 2024-07-27 12:14 | DVH ---
CHEST RADIOGRAPH Indication: sob Technique: Single frontal view of the chest was obtained Comparison: CHEST XRAY 1 VIEW on DOS: 06/16/20 FINDINGS: Lines and Tubes: None Lungs: There is asymmetric elevation of the right hemidiaphragm. There is no focal lung consolidation . Pleura: No effusion.No pneumothorax. Cardiomediastinal contours: Unremarkable Pulmonary vasculature: Within normal limits. Bones: No acute osseous abnormality. IMPRESSION: 1. No acute cardiopulmonary disease. HS:Y
[2024-07-27 12:40] VITALS: BP 141/62; PULSE 78; RESP 17; TEMP 98.7; O2SAT 97
[2024-07-27] MEDS: AZITHROMYCIN 500MG/ 250ML 250 ML IV ONE (13:28)
[2024-07-27] MEDS: cefTRIAXone 1GM/50ML D5W 50 ML IV ONE (13:28)
[2024-07-27 16:22] LABS: Urine Bacteria FEW /hpf (None Seen); Urine Blood 2+ /uL (Negative); Urine Budding Yeast MODERATE /hpf (None Seen); Urine Clarity Turbid (Clear); Urine Color Yellow (Yellow); Urine Mucus FEW (None Seen); Urine Protein, UAD 1+ (Negative); Urine Specific Gravity 1.027 (1.001-1.035); Urine Urobilinogen Normal (Negative); Urine WBC 516 /hpf (0 - 5)
--- NOTE | 2024-07-28 13:45 | ECG ---
[facility] Test Date: 2024-07-27 Test Time: 09:45:00 Pat Name: CHRISTOPHE RUBIO Department: er Room: Gender: F Mangle Roller: rudolph : 1945 Requested By: SHELDON BERNARDO Order Number: [id number] Reading MD: Enmanuel Levine Measurements Intervals [place] Rate: 85 P: 40 CO: 160 QRS: 6 QRSD: 87 T: 31 QT: 381 QTc: 453 Interpretive Statements Sinus rhythm Low voltage, precordial leads Electronically Signed On 07-28-2024 16:44:22 PST by Enmanuel Levine Please click the below link to view image of tracing.
== END 2024-07-27 18:19 | disposition left against medical advice (07) ==
LOC: ER 09:42 → EDBD 09:42 → ER 18:19
DX: J18.9 Pneumonia, unspecified organism (principal); R07.89 Other chest pain; I10 Essential (primary) hypertension; Z79.899 Other long term (current) drug therapy; Z98.890 Other specified postprocedural states
CPT/HCPCS: 36415; 71045; 80048; 81001; 84484; 85025; 93005; 96365; 96366; 96368; 99291; J0456; J0696